=== PATIENT | male | born 1955 | race Caucasian/White ===

== ENCOUNTER 2021-06-01 21:52 | Observation (INO) | payer BC ==
[2021-06-01] MEDS ORDERED: SODIUM CHLORIDE 0.9% 500 ML INFUS.BAG IV ONE (22:50)
[2021-06-01] MEDS ORDERED: ONDANSETRON 4 MG/2 ML VIAL IVPUSH ONE (22:50)
[2021-06-01] MEDS ORDERED: ONDANSETRON 4 MG/2 ML VIAL ONE (23:16)
[2021-06-01 23:59] LABS: BASO % 0.1 % (0-2.0); EOS % 0.4 % (0-4.5); HEMATOCRIT 39.5 % (35.4-49); LYMPH % 9.2 % (8-40); MCH 31.3 pg (25.7-33.7); MCHC 35.4 g/dl (32.0-35.9); MEAN CELL VOLUME 88.4 fl (80-96); MEAN PLT VOLUME 7.5 fl (7.5-11.1); MONO % 5.3 % (3.8-10.2); PLATELET COUNT 145 10^3/uL (134-434); RBC 4.47 M/mm3 (4.00-5.60); RDW 14.1 % (11.9-15.9); WHITE BLOOD COUNT 8.1 K/mm3 (4.0-10.0)
[2021-06-02 00:17] LABS: ALBUMIN 3.5 g/dl (3.4-5.0); BLOOD UREA NITROGEN 14.5 mg/dL (7-18); CALCIUM 8.9 mg/dL (8.5-10.1); INR 1.04 (0.83-1.09); MAGNESIUM 2.1 mg/dL (1.8-2.4)
[2021-06-02 00:20] LABS: ACTIVATED PTT 29.8 SECONDS (25.2-36.5); PHOSPHOROUS 2.6 mg/dL (2.5-4.9)
[2021-06-02 00:21] LABS: TOT PROT 6.6 g/dl (6.4-8.2)
[2021-06-02 00:22] LABS: BILIRUBIN,TOTAL 0.5 mg/dL (0.2-1)
[2021-06-02] MEDS ORDERED: POLYETHYLENE GLYCOL (HEALTHYLAX) 3350 17 GM PACKET PO PRN (00:47)
[2021-06-02] MEDS ORDERED: ACETAMINOPHEN 325 MG TABLET (FP) PO PRN (00:47)
[2021-06-02] MEDS ORDERED: DOCUSATE SODIUM 100 MG CAPSULE (FP) PO ONE (01:44)
[2021-06-02] MEDS ORDERED: ROSUVASTATIN CA 5 MG TABLET PO SCH ×2 (10:00→22:00)
[2021-06-02] MEDS ORDERED: metoPROLOL SUCCINATE 25 MG TAB.SR.24H (FP) ONE (10:39)
[2021-06-02] MEDS ORDERED: ENOXAPARIN NA (PORCINE) 40 MG/0.4 ML DISP.SYRIN SQ ONE (10:40)
[2021-06-02] MEDS: ENOXAPARIN NA (PORCINE) 40 MG/0.4 ML DISP.SYRIN SQ SCH (11:30)
[2021-06-02] MEDS: metoPROLOL SUCCINATE 25 MG TAB.SR.24H (FP) PO SCH (11:30)
[2021-06-02 18:43] VITALS: BMI 36.6
[2021-06-02] MEDS ORDERED: MECLIZINE HCL 12.5 MG TABLET PO PRN (21:39)
[2021-06-02] MEDS ORDERED: DOCUSATE SODIUM 100 MG CAPSULE (FP) PO SCH (22:00)
[2021-06-03 07:39] LABS: BASO % 0.9 % (0-2.0); EOS % 2.3 % (0-4.5); HEMATOCRIT 40.2 % (35.4-49); HEMOGLOBIN 13.7 GM/dL (11.7-16.9); LYMPH % 30.4 % (8-40); MCH 30.7 pg (25.7-33.7); MCHC 34.2 g/dl (32.0-35.9); MEAN CELL VOLUME 89.7 fl (80-96); NEUT % 56.4 % (42.8-82.8); PLATELET COUNT 147 10^3/uL (134-434); RBC 4.48 M/mm3 (4.00-5.60); RDW 14.1 % (11.9-15.9); WHITE BLOOD COUNT 5.2 K/mm3 (4.0-10.0)
[2021-06-03 08:04] LABS: BLOOD UREA NITROGEN 13.8 mg/dL (7-18); CALCIUM 8.7 mg/dL (8.5-10.1)
[2021-06-03] MEDS: metoPROLOL SUCCINATE 25 MG TAB.SR.24H (FP) PO SCH (11:03)
[2021-06-03] MEDS: ENOXAPARIN NA (PORCINE) 40 MG/0.4 ML DISP.SYRIN SQ SCH (11:04)
[2021-06-03 15:23] VITALS: BP 138/69; PULSE 57; TEMP 97.9
== END 2021-06-03 18:37 | disposition home or self-care (01) ==
LOC: JER 21:52 → JERBED 06-02 00:35 → J4S 06-02 17:06
PROVIDERS: ADMIT Hospitalist; ATTEND Family Medicine
PROC: 3E023GC Introduction of Other Therapeutic Substance into Muscle, Percutaneous Approach (ICD-10-PCS; principal; 2021-06-02)
PROC: 3E033GC Introduction of Other Therapeutic Substance into Peripheral Vein, Percutaneous Approach (ICD-10-PCS; 2021-06-02)
PROC: 3E0337Z Introduction of Electrolytic and Water Balance Substance into Peripheral Vein, Percutaneous Approach (ICD-10-PCS; 2021-06-02)
DX: R42 Dizziness and giddiness (principal); I48.92 Unspecified atrial flutter; E78.5 Hyperlipidemia, unspecified; I10 Essential (primary) hypertension; K57.90 Diverticulosis of intestine, part unspecified, without perforation or abscess without bleeding; Z85.53 Personal history of malignant neoplasm of renal pelvis; K59.00 Constipation, unspecified; R11.2 Nausea with vomiting, unspecified; E66.9 Obesity, unspecified; Z68.36 Body mass index [BMI] 36.0-36.9, adult
CPT/HCPCS: 36415; 70450-TC; 70551-TC; 71045-TC-FY; 80048; 80053; 83690; 83735; 84100; 84484; 85025; 85610; 85730; 93005; 93010; 93306-TC; 99285-25; C9803-CS; G0378; U0003; U0005